=== PATIENT | male | born 1970 | race Caucasian/White ===

== ENCOUNTER 2016-09-07 14:42 | Emergency (ER) | payer SELFPAY | END 2016-09-07 17:25 | disposition home or self-care (01) | LOC: ER1 14:42 | DX: T15.01XA Foreign body in cornea, right eye, initial encounter (principal); F17.210 Nicotine dependence, cigarettes, uncomplicated; X58.XXXA Exposure to other specified factors, initial encounter; Y92.69 Other specified industrial and construction area as the place of occurrence of the external cause; Y99.0 Civilian activity done for income or pay | CPT/HCPCS: 65205; 99283 ==